=== PATIENT | male | born 1955 | race African-American/Black ===

== ENCOUNTER 2017-04-11 11:58 | Emergency (ER) | payer MEDICARE, MEDICAID ==
[~2017-04-11] VITALS: Ht 167.6 cm; Wt 114.0 kg
[~2017-04-11 11:58] MED LIST: BRIM.2; COLC0.6T66; LATA2.5D2; SEE MED. SHEET; TIMO5DRO27; [UNRECOGNIZED DRUG - OTHER]
[2017-04-11 15:56] VITALS: BP 176/88
== END 2017-04-11 22:40 | disposition left against medical advice (07) ==
LOC: ER 15:12
DX: Z53.21 Procedure and treatment not carried out due to patient leaving prior to being seen by health care provider (principal)

== ENCOUNTER 2018-07-03 14:08 | Emergency (ER) | payer MEDICARE, MEDICAID ==
[~2018-07-03] VITALS: Ht 175.3 cm; Wt 82.0 kg
[~2018-07-03 14:08] MED LIST changes: -BRIM.2; +BRIM.2 BOTHEYE; -LATA2.5D2; +LATA2.5D2 LEFTEYE; +MAXITROL EACHEYE; -TIMO5DRO27; +TIMO5DRO27 BOTHEYE
[2018-07-03 14:44] VITALS: BP 165/117
== END 2018-07-03 17:23 | disposition left against medical advice (07) ==
LOC: ER 14:08
DX: M54.5 Low back pain (principal)
CPT/HCPCS: 99281

== ENCOUNTER 2022-02-27 09:31 | Emergency (ER) | payer BC, OTHER, MEDICAID ==
[~2022-02-27] VITALS: Ht 167.6 cm; Wt 93.0 kg
[~2022-02-27 09:31] MED LIST changes: +LATA2.5D14 LEFTEYE; -LATA2.5D2 LEFTEYE
[2022-02-27 09:43] VITALS: BP 134/85
[2022-02-27] MEDS ORDERED: ACET-2708 MT (10:08)
[2022-02-27] MEDS ORDERED: BO1 TP (10:08)
[2022-02-27] MEDS ORDERED: BACITRACIN 15GM TUBE TOP ONE (10:15)
== END 2022-02-27 10:33 | disposition home or self-care (01) ==
LOC: ER 09:31
DX: S71.112A Laceration without foreign body, left thigh, initial encounter (principal); W25.XXXA Contact with sharp glass, initial encounter; Y93.89 Activity, other specified; Y92.038 Other place in apartment as the place of occurrence of the external cause
CPT/HCPCS: 99281